=== PATIENT | male | born 1925 | race Caucasian/White ===

== ENCOUNTER → 2016-04-06 | Outpatient (CLI) | payer OTHER, MEDICARE ==
--- NOTE | 2016-04-06 13:55 | DX ---
Bilateral Hands 3 Views History: M79.643, possible chondrocalcinosis. Comparison: Left hand and wrist September 21, 2012. Findings: Right: Chondrocalcinosis is noted, including in the metacarpophalangeal joints and in the region of t he TFCC. Mild joint space narrowing and osteophyte formation are present in the proximal distal inter phalangeal joints of the second and third fingers and in the first and second metacarpophalangeal starr nts. There is an erosion at the ulnar aspect of the base of the second metacarpal. Small lunate and p isiform erosions are suspected. No fracture is identified. Alignment is normal. Left: Chondrocalcinosis is slightly increased, including in the metacarpophalangeal joints and in the TFCC. Erosions are present in the head of the proximal phalanx of the thumb as well as in the lunate , triquetrum, and pisiform. There are equivocal erosions in the heads of the middle and distal phalan ges of the second finger. 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 Mild osteoarthritis is present in the proximal and distal interphalangeal joints of the second and third fingers and in the proximal interphalangeal joints of the fourth and fifth fingers, with sligh t increase in degenerative change since 2012. No fracture is identified. Alignment is normal. Impression: 1. Diffuse bilateral chondrocalcinosis. 2. Bilateral erosions in the carpals with a left first proximal phalanx erosion. 3. Additional findings as above.
== END ==
LOC: BMCIMAGING 11:03
PROVIDERS: ATTEND Internal Medicine Rheumatology
DX: M11.241 Other chondrocalcinosis, right hand (principal); M11.242 Other chondrocalcinosis, left hand; G60.3 Idiopathic progressive neuropathy; M19.90 Unspecified osteoarthritis, unspecified site
CPT/HCPCS: 86618-90

== ENCOUNTER → 2016-05-04 | Outpatient (CLI) | payer OTHER, MEDICARE | LOC: BMCIMAGING 13:48 | PROVIDERS: ATTEND Internal Medicine Rheumatology | DX: M11.241 Other chondrocalcinosis, right hand (principal); M11.242 Other chondrocalcinosis, left hand ==

== ENCOUNTER → 2016-05-29 | Outpatient (CLI) | payer OTHER, MEDICARE | LOC: FIMAGING 17:26 | PROVIDERS: ATTEND Internal Medicine | DX: R05 Cough (principal) ==

== ENCOUNTER 2016-07-21 23:09 | Inpatient (IN) | payer OTHER, MEDICARE ==
[2016-07-21] MEDS ORDERED: ONDANSETRON 4 MG/2 ML VIAL ONE (23:27)
[2016-07-21] MEDS ORDERED: ONDANSETRON 4 MG/2 ML VIAL IVP ONE (23:30)
--- NOTE | 2016-07-21 23:30 | EDPHY ---
H & P Source: Patient Exam Limitations: No limitations - Medical/Surgical History Hx Asthma: No Hx Chronic Respiratory Disease: No Hx Diabetes: No Hx Cardiac Disease: Yes Hx Renal Disease: No Hx Cirrhosis: No Hx Alcoholism: No Hx HIV/AIDS: No Hx Splenectomy or Spleen Trauma: No Other PMH: [place], AFib, Peripheral artery disease, thyroid. - Social History Smoking Status: Former smoker <Ezekiel Ruelas - Last Filed: 07/22/16 00:16> <Christina Carmen - Last Filed: 07/22/16 02:03> HPI/ROS: CHIEF COMPLAINT: Nausea, vomiting diarrhea HISTORY OF PRESENT ILLNESS: Patient complains of nausea that started around 9: 00 p.m. this evening. This was quickly followed by vomiting and diarrhea. The vomiting and diarrhea described as profuse and watery. Multiple bouts of this over the past 2 hours. The patient's son-in-law is at bedside. He reports that patient had 4 teeth pulled this afternoon. He arrived home for the Dentist 530, and they all had dinner together at 6:30 a.m. at the independent living facility. He was feeling well on the left around 8:30 p.m.. They were called 2 hours later with the above complaints. Patient reports some nausea at this time. He reports some abdominal cramping but no actual pain. No fever. No flank pain. No urinary complaints. He was started on amoxicillin today but no antibiotics in the past 30 days otherwise. No history of C difficile colitis. No known case of C diff at his residence at this time. No other associated complaints or modifying factors. Arrives by EMS with 500 mL of IV fluid infusing. REVIEW OF SYSTEMS: Ten systems reviewed and are negative unless otherwise noted in the HPI PERTINENT MEDICAL HISTORY: Reviewed EXAMINATION General Appearance: Alert, no distress Head: normocephalic, atraumatic Eyes: Pupils equal and round, no conjunctival pallor or injection. EOMs intact. No nystagmus. ENT, Mouth: Mucous membranes dry. Neck: Normal inspection, supple, non-tender Respiratory: Lungs are clear to auscultation. No wheezing, rhonchi or crackles. Cardiovascular: Bradycardic rate with regular rhythm. Gastrointestinal: Abdomen is soft. Mild tenderness in the epigastrium. No tympany. No guarding. No distention. Neurological: GCS 15. A&O, nonfocal, strength symmetric. Conversing appropriately. Skin: Warm and dry, no rash Extremities: Nontender, no pedal edema Psychiatric: Mood and affect normal DIFFERENTIAL DIAGNOSES: Including but not limited to acute nausea vomiting, dehydration, electrolyte disturbance, C difficile colitis, MDM: 11:30 p.m. Nausea, vomiting and diarrhea. The patient was nauseated and began to vomit toward the end of my examination. We are administering Zofran. Vital signs remained normotensive with mild bradycardia in the 50s. He is on a beta tulio. We will obtain EKG, chest x-ray and continue Monitoring closely, obtain laboratory studies and GI pathogen panel. 11:45 p.m. After my initial examination the patient's status has changed. He is now having difficulty finding words, he is feeling more nauseated and feeling scared. He was examined personally by Dr. Carmen. She has ordered a CT scan of the head. I have added blood cultures, lactic acid, troponin and chest x- ray. We are also obtaining a stat blood glucose by POC I-Stat. 12:15 a.m. Stroke alert was initiated after the blood glucose returned within normal limits. CT scan has returned negative for any acute findings. His mentation has improved. His vital signs remained stable with mild bradycardia. Will continue IV fluid resuscitation. The majority of his laboratory studies are pending. Dr. Carmen has been in contact with [facility]. At this time she will assume care the patient. Please see her note for final disposition per SUPERVISION: Patient was evaluated in conjunction with the supervising physician. Please see their note for details. (Ezekiel Ruelas) Constitutional: Initial Vital Signs Heart Rate 58 L 07/21/16 23:10 Respiratory Rate 16 07/21/16 23:10 Blood Pressure 165/75 H 07/21/16 23:10 O2 Sat (%) 95 07/21/16 23:10 O2 Delivery Mode Nasal Cannula O2 (L/minute) 2 Allergies/Adverse Reactions: codeine [Codeine] Allergy (Mild, Verified 07/21/16 23:24) Rash GLUTEN/CELIAC DISEASE Allergy (Mild, Uncoded 07/21/16 23:24) Other-Enter Comments Home Medications: Medication Instructions Recorded Aspirin [Aspirin 81mg] 81 mg PO DAILY 01/24/11 Finasteride [Proscar] 5 mg PO DAILY 01/24/11 Sertraline HCl [Zoloft] 25 mg PO DAILY 01/24/11 Simvastatin 20 mg PO 01/24/11 Triamterene/Hctz 37.5/25 [Dyazide] 37.5 each PO 01/24/11 Metoprolol Tartrate 10/25/15 Warfarin Sodium 10/25/15 Calcium [HI-KRYSTAL] 500 mg PO 07/21/16 Lactobacillus Combination No.4 1 each PO 07/21/16 [Probiotic] Medical Decision Making <Ezekile Ruelas - Last Filed: 07/22/16 00:16> - Diagnostics Imaging: Discussed imaging studies w/ call or contact centre team leader Radiologist <Christina Carmen - Last Filed: 07/22/16 02:03> - Diagnostics EKG Interpretation: EKG: Complete interpretation has been separately recorded in the [facility] archive. Summary impression: Normal sinus rhythm with PVC (Christina Carmen) Imaging Results: Imaging Impressions Head CT 07/21/16 23:44 impression: Negative. No acute intracranial hemorrhage or evidence of cortical ischemia. Findings discussed with Emergency Department physician, Christina Carmen MD at 07/22/2016 00:01. Chest x-ray one view shows no acute abnormalities, interpreted by me, radiology interpretation is pending. (Christina Carmen) Other Provider: ED PA DICTATION I evaluated and participated in the management of the patient. I also evaluated the patient independently. My co-signature indicates that I have reviewed this chart and I agree with the findings and plan of care as documented. My personal H&P findings include: This is an 89-year-old man with atrial fibrillation, off of warfarin for the last 3 days due to dental procedure , presenting to the ER now with nausea, vomiting, diarrhea for the last 1 day. At approximately midnight I was called to see the patient because he was complaining that he was feeling worse. He had a difficult time articulating exactly how he felt. He was misnaming words, and speaking somewhat nonsensically. He appeared to have aphasia. I completed a stroke assessment and his only finding was deficits in orientation, he could not tell me the name of the hospital, or the date today. We checked his electrolytes, glucose was normal, stroke activation was called. The patient had a CT scan without contrast performed of his head, this was interpreted by Dr. Helgans as negative with no acute findings. I consulted with the on-call neurologist from [facility], Dr. Parham. We discussed the case and Dr. Parham examined the patient. By this time, his symptoms had mostly resolved. His stroke scale was 0. We at this time attribute his aphasia to other process which is likely non neurologic. He continued to feel better in the ER with IV fluids. I have discussed the case with the hospitalist Dr. Flowers who will admit the patient. (Christina Carmen) - Data Points Laboratory Results: Laboratory Results 07/22/16 00:30 07/22/16 00:30 07/22/16 07/22/16 07/22/16 00:30 00:30 00:30 WBC 11.54 10^3/uL H 10^3/uL (3.80-9.50) RBC 5.09 10^6/uL 10^6/uL (4.40-6.38) Hgb 16.1 g/dL g/dL (13.7-17.5) POC Hgb Hct 46.7 % % (40.0-51.0) POC Hct MCV 91.7 fL fL (81.5-99.8) MCH 31.6 pg pg (27.9-34.1) MCHC 34.5 g/dL g/dL (32.4-36.7) RDW 14.0 % % (11.5-15.2) Plt Count 157 10^3/uL 10^3/uL (150-400) MPV 10.5 fL fL (8.7-11.7) Neut % (Auto) 88.7 % H % (39.3-74.2) Lymph % (Auto) 3.2 % L % (15.0-45.0) Faulkner % (Auto) 6.1 % % (4.5-13.0) Eos % (Auto) 0.3 % L % (0.6-7.6) Baso % (Auto) 0.3 % % (0.3-1.7) Nucleat RBC Rel Count 0.0 % % (0.0-0.2) Absolute Neuts (auto) 10.23 10^3/uL H 10^3/uL (1.70-6.50) Absolute Lymphs (auto) 0.37 10^3/uL L 10^3/uL (1.00-3.00) Absolute Monos (auto) 0.70 10^3/uL 10^3/uL (0.30-0.80) Absolute Eos (auto) 0.04 10^3/uL 10^3/uL (0.03-0.40) Absolute Basos (auto) 0.04 10^3/uL 10^3/uL (0.02-0.10) Absolute Nucleated RBC 0.00 10^3/uL 10^3/uL (0-0.01) Immature Gran % 1.4 % H % (0.0-1.1) Immature Gran # 0.16 10^3/uL H 10^3/uL (0.00-0.10) PT 15.4 SEC H SEC (12.0-15.0) INR 1.22 H (0.83-1.16) APTT 28.0 SEC SEC (23.0-38.0) POC Sodium Sodium 137 mEq/L mEq/L (134-144) POC Potassium Potassium 4.0 mEq/L mEq/L (3.5-5.2) POC Chloride Chloride 105 mEq/L mEq/L (97-110) Carbon Dioxide 25 mEq/l mEq/l (22-31) Anion Gap 7 mEq/L L mEq/L (8-16) POC BUN BUN 22 mg/dL mg/dL (7-23) Creatinine 0.9 mg/dL mg/dL (0.7-1.3) POC Creatinine Estimated GFR > 60 Glucose 112 mg/dL H mg/dL (70-100) POC Glucose Calcium 8.0 mg/dL L mg/dL (8.5-10.4) Total Bilirubin 1.2 mg/dL mg/dL (0.1-1.4) Conjugated Bilirubin 0.4 mg/dL mg/dL (0.0-0.5) Unconjugated Bilirubin 0.8 mg/dL mg/dL (0.0-1.1) AST 42 IU/L IU/L (17-59) ALT 41 IU/L IU/L (21-72) Alkaline Phosphatase 59 IU/L IU/L (38-126) Troponin I < 0.012 ng/mL ng/mL (0-0.034) NT-Pro-B Natriuret Pep 381 pg/mL pg/mL (0-450) Total Protein 6.4 g/dL g/dL (6.3-8.2) Albumin 3.5 g/dL g/dL (3.5-5.0) Lipase 111.0 IU/L IU/L (23-300) 07/21/16 23:42 WBC RBC Hgb POC Hgb 17.7 gm/dL H gm/dL (14.5-17.3) Hct POC Hct 52 % H % (42.8-50.6) MCV MCH MCHC RDW Plt Count MPV Neut % (Auto) Lymph % (Auto) Faulkner % (Auto) Eos % (Auto) Baso % (Auto) Nucleat RBC Rel Count Absolute Neuts (auto) Absolute Lymphs (auto) Absolute Monos (auto) Absolute Eos (auto) Absolute Basos (auto) Absolute Nucleated RBC Immature Gran % Immature Gran # PT INR APTT POC Sodium 139 mEq/L mEq/L (134-144) Sodium POC Potassium 3.3 mEq/L mEq/L (3.3-5.0) Potassium POC Chloride 100 mEq/L mEq/L (96-108) Chloride Carbon Dioxide Anion Gap POC BUN 21 mg/dL mg/dL (7-23) BUN Creatinine POC Creatinine 1.0 mg/dL mg/dL (0.8-1.5) Estimated GFR Glucose POC Glucose 128 mg/dL H mg/dL (70-100) Calcium Total Bilirubin Conjugated Bilirubin Unconjugated Bilirubin AST ALT Alkaline Phosphatase Troponin I NT-Pro-B Natriuret Pep Total Protein Albumin Lipase Medications Given: Discontinued Medications Ondansetron HCl (Zofran) 4 mg IVP EDNOW ONE Stop: 07/21/16 23:31 Last Admin: 07/21/16 23:46 Dose: 4 mg Point of Care Test Results: 07/21/16 23:42 POC Sodium 139 POC Potassium 3.3 POC Chloride 100 POC BUN 21 POC Creatinine 1.0 POC Glucose 128 H Departure <Ezekiel Ruelas - Last Filed: 07/22/16 00:16> <Christina Carmen - Last Filed: 07/22/16 02:03> - Departure Disposition: [facility] Acute Clinical Impression: Dehydration, Symptomatic bradycardia Nausea & vomiting Qualifiers: Vomiting type: unspecified Vomiting Intractability: non-intractable Qualified Code(s): R11.2 - Nausea with vomiting, unspecified Condition: Fair
--- NOTE | 2016-07-22 00:01 | CPEKG ---
Heart Rate: 56 RR Interval: 1071 P-R Interval: 172 QRSD Interval: 106 QT Interval: 464 QTC Interval: 448 P Many: 58 QRS Many: 80 T Wave Many: 58 EKG Severity - OTHERWISE NORMAL ECG - EKG Impression: SINUS RHYTHM EKG Impression: VENTRICULAR PREMATURE COMPLEX Electronically Signed By: Christina Carmen 22-Jul-2016 06:39:30
--- NOTE | 2016-07-22 00:23 | PDCONSULT ---
Lump Receiver Note: [facility] Note Demographics Consult Type Acute Stroke First Name Milan Last Name Roosevelt Date of 1925 Age: 89 Gender Male Referring Provider Dr Carmen Time of initial page (): 07/21/2016 23:53 Time of return call (): 07/21/2016 23:55 Time Ready to Initiate Telemed Consult ( Time): 07/21/2016 23:56 HPI Chief Complaint: aphasia Additional History (Free Text): 89 year old man with history of atrial fibrillation. He presented to the emergency department with complaints of vomiting and diarrhea. Developed trouble talking in the emergency department symptoms concerning for a fascia urgent CT scan was done and stroke alert was paged. Time of evaluation he requires some prompting to fully grab his attention but he is able to interact with the camera his son is at the bedside [facility]-- Past Medical History: Atrial Fibrillation, Hypertension, PVD, neuropathy Medications: off coumadin x 3 dys for anticipated dental procedure Exam Vitals: vital signs reviewed SBP: 147 DBP: 74 Mental Status: awake, follows commands, fair attention, seems in mild to moderate distress, distractable. Language: mild dysarthria (sounds close to baselline per family) names 5 of 6 objects, reads well and describes picture. Cranial Nerves no facial droop Motor: normal strength Sensory: normal sensation Cerebellar: normal cerebellar NIHSS Time (): 07/22/2016 00:02 LOC 1a: 0 = Alert; keenly responsive LOC 1b: 1 = Answers one question correctly LOC Commands: 0 = Performs both tasks correctly Best Gaze: 0 = Normal Visual: 0 = No visual loss Facial Palsy 0 = Normal symmetrical movements Motor Arm L: 0 = No drift; limb holds 90 (or 45) degrees for full 10 seconds Motor Arm R: 0 = No drift; limb holds 90 (or 45) degrees for full 10 seconds Motor Leg L: 0 = No drift; leg holds 30-degree position for full 5 seconds Motor Leg R: 0 = No drift; leg holds 30-degree position for full 5 seconds Limb Ataxia 0 = Absent Sensory: 0 = Normal; no sensory loss Best Language: 0 = No aphasia; normal Dysarthria: 1 = Indm-yp-[id number] dysarthria; patient slurs at least some words Extinction + Inattention: 0 = No abnormality NIHSS: [address]: just perfromed result pending. Assessment: Altered Mental Status, Altered mentatino wtih trouble talking vs possible aphasia. At tiem fo exam he is without lateralized deficits and talking is very close to baseline. Symptoms could be explained by systemic illness and mild encephalopathy or perhaps resolving aphasia symptoms. Plan/ please take as written orders Lytic/Intervention: NOT IV or IA candidate tPA Exclusion (< 3hr window) Mild or improving symptoms Target Blood Pressure: SBP < 180 and DBP < 100 Labs CBC, Comprehensive metabolic panel, ESR, UA Other telemetry monitoring, I have discussed my recommendations with the referring provider Additional Recommendations: Continue work up for causes of his presenting complaint, infection etc. If symptoms concerning for possible mild stroke persist or his syndrome worsens will re-eval. No tPa at this time due to mild syndrome, perhaps not TIA/stroke. Disposition observation
[2016-07-22 00:48] LABS: % IMMATURE GRANULYOCYTES 1.4 % (0.0-1.1); ABSOLUTE IMMATURE GRANULOCYTES 0.16 10^3/uL (0.00-0.10); ADD DIFF? NO; ADD MORPH? NO; ADD SCAN? NO; ATYPICAL LYMPHOCYTE FLAG 0 (0-99); FRAGMENT RBC FLAG 0 (0-99); HEMATOCRIT 46.7 % (40.0-51.0); HEMOGLOBIN 16.1 g/dL (13.7-17.5); LEFT SHIFT FLG 40 (0-99); LIPEMIA HEMOLYSIS FLAG 90 (0-99); MEAN CELL HEMOGLOBIN 31.6 pg (27.9-34.1); MEAN CELL HEMOGLOBIN CONCENTR. 34.5 g/dL (32.4-36.7); MEAN CELL VOLUME 91.7 fL (81.5-99.8); MEAN PLATELET VOLUME 10.5 fL (8.7-11.7); PLATELET CLUMPS FLAG 0 (0-99); PLATELET COUNT 157 10^3/uL (150-400); RED BLOOD CELL COUNT 5.09 10^6/uL (4.40-6.38)
[2016-07-22 00:57] LABS: ALANINE AMINOTRANSFERASE 41 IU/L (21-72); ALBUMIN 3.5 g/dL (3.5-5.0); ALKALINE PHOSPHATASE 59 IU/L (38-126); ANION GAP 7 mEq/L (8-16); ASPARTATE AMINOTRANSFERASE 42 IU/L (17-59); BILIRUBIN,TOTAL 1.2 mg/dL (0.1-1.4); BILIRUBIN-CONJUGATED 0.4 mg/dL (0.0-0.5); BILIRUBIN-UNCONJUGATED 0.8 mg/dL (0.0-1.1); CARBON DIOXIDE 25 mEq/l (22-31); CHLORIDE 105 mEq/L (97-110); CREATININE 0.9 mg/dL (0.7-1.3); GLOMERULAR FILTRATION RATE > 60; GLUCOSE 112 mg/dL (70-100); SODIUM 137 mEq/L (134-144); TOTAL PROTEIN 6.4 g/dL (6.3-8.2)
[2016-07-22 01:08] LABS: TROPONIN I < 0.012 ng/mL (0-0.034)
[2016-07-22 01:11] LABS: INR 1.22 (0.83-1.16); PROTIME(PATIENT) 15.4 SEC (12.0-15.0)
[2016-07-22] MEDS ORDERED: ONDANSETRON DISINTEGRATING 4 MG TAB PO PRN (02:26)
[2016-07-22] MEDS ORDERED: ONDANSETRON 4 MG/2 ML VIAL IVP PRN (02:26)
[2016-07-22] MEDS ORDERED: ACETAMINOPHEN 325 MG TAB PO PRN (02:26)
[2016-07-22] MEDS: NS 1,000 ML IV SCH ×2 (02:45→16:13)
[2016-07-22 05:50] LABS: ALANINE AMINOTRANSFERASE 37 IU/L (21-72); ALKALINE PHOSPHATASE 50 IU/L (38-126); ANION GAP 7 mEq/L (8-16); ASPARTATE AMINOTRANSFERASE 25 IU/L (17-59); BILIRUBIN,TOTAL 1.1 mg/dL (0.1-1.4); CALCIUM 8.2 mg/dL (8.5-10.4); CARBON DIOXIDE 22 mEq/l (22-31); CHLORIDE 107 mEq/L (97-110); CREATININE 0.9 mg/dL (0.7-1.3); GLOMERULAR FILTRATION RATE > 60; GLUCOSE 139 mg/dL (70-100); POTASSIUM 3.7 mEq/L (3.5-5.2); SODIUM 136 mEq/L (134-144); TOTAL PROTEIN 5.4 g/dL (6.3-8.2)
[2016-07-22 06:03] LABS: INR 1.18 (0.83-1.16)
--- NOTE | 2016-07-22 08:22 | GHP ---
[f rep st] HISTORY AND PHYSICAL DATE OF ADMISSION: 07/22/2016 CHIEF COMPLAINT: Nausea, vomiting, diarrhea. HISTORY OF PRESENT ILLNESS: This is an 89-year-old male with a history of atrial fibrillation, who underwent a dental procedure with extractions of 4 teeth on the morning of admission. He had been o ff his Coumadin for 3 days. He states that several hours later, he developed nausea, vomiting, and diarrhea that became watery. Denied any abdominal pain. No fevers or chills. This persisted and p atient came to the emergency department. In the emergency department, he had a very short episode o f aphasia. Afterwards, patient describes that he felt a little bit confused and frustrated that he was unable to get words out. A stroke alert was called and by the time the tele neurologist saw the patient, his symptoms had essentially resolved. He denies any focal weakness. Several hours after this episode and during this interview, the patient is feeling a little bit better. He stopped vom iting and has not had a bowel movement. He lives at the [facility]. No known history of Clostridium difficile or sick contacts. He received a local anesthetic. REVIEW OF SYSTEMS: A 10-point review of systems obtained, and other than stated was negative. PAST MEDICAL HISTORY: 1. Atrial fibrillation. He states that he just had 1 episode of atrial fibrillation that is known, and I believe was diagnosed on a 24 ambulatory monitor EKG in 2010. 2. Coronary artery disease on a heart catheterization done in 2012, which showed up to 70% stenosis of his circumflex, as well as some stenosis of his LAD, but was managed medically. 3. Peripheral vascular disease. 4. BPH. 5. Hypertension. MEDICATIONS: Reviewed. SOCIAL HISTORY: Former smoker. Lives with his . Lives at [facility]. FAMILY HISTORY: Both parents are . PHYSICAL EXAMINATION: Afebrile, blood pressure is 154/67, heart rate 65, oxygen saturation 100% on 2 L. GENERAL: The patient is well developed, no apparent distress. HEENT: Nonicteric sclerae. E xtraocular muscles intact. Moist mucous membranes. NECK: Supple. No thyromegaly. LUNGS: Good e ffort. Clear to auscultation bilaterally. CARDIOVASCULAR: Regular rate and rhythm. No murmurs, r ubs, or gallops. ABDOMEN: Positive bowel sounds. Soft. Nontender. Nondistended. No hepatosplen omegaly. EXTREMITIES: No clubbing, cyanosis, or edema. SKIN: Without rash, dry, intact. NEUROLO GIC: Alert and oriented x3, 5/5 strength in all 4 extremities. No facial droop. PSYCH: Normal mo od and affect. LABORATORY DATA: White blood cell count is slightly elevated at 11, hemoglobin 16. Creatinine is 0 .9. Troponin was negative. CT scan of the head is negative. ASSESSMENT: This is an 89-year-old male, presenting with acute nausea, vomiting, and diarrhea after teeth extractions. PLAN: 1. Nausea, vomiting, and diarrhea. I am not sure what the cause is. I am wondering if this may be some type of allergic reaction to perhaps the lidocaine. It seems to be too quick of an onset to b e Clostridium difficile from the antibiotics that he was given. It could be a coincidental gastroen teritis. GI pathogen is pending currently. We will continue IV fluids and monitor how he does. 2. Transient episode of aphasia. It is concerning that he does have a history of atrial fibrillati on and has been off his anticoagulation for the last several days; however, he is in sinus rhythm cu rrently, and symptoms were quite transient. Neurology thought that it was non-neurological in origi n. I am a little bit hesitant to aggressively anticoagulate since he just had his teeth extractions less than 24 hours ago. We will restart his Coumadin. I guess a consideration for Lovenox later i n the day could be made. 3. History of coronary artery disease. We will check another troponin in case this is an anginal e quivalent, although diarrhea does not necessarily fit in that. 4. Code status. Patient is a DNR. /[id number]/MODL
[2016-07-22] MEDS ORDERED: ENOXAPARIN 40 MG/0.4 ML SYR SC SCH (09:00)
[2016-07-22] MEDS: methylPREDNISolone 4 MG TAB PO SCH (13:24)
--- NOTE | 2016-07-22 17:13 | HOSPPROG ---
Hospitalist Progress Note Assessment/Plan: * Severe diarrhea - resolved -GI PCR panel negative -afraid to eat - encouraged him to advance diet * TIA - suspect due to holding coumadin for dental work -start full dose Lovenox tonight as bridge * Recent dental work -per dentist okay to DC amoxicillin -patient concerned abx caused diarrhea * Afib -anticoagulation as above * CAD - 70% circ lesion - unstented Subjective: Afraid to eat, hasn't taken even water, no more diarrhea Objective: Vital Signs Temp Pulse Resp BP Pulse Ox 36.8 C 70 18 104/54 L 94 07/22/16 15:15 07/22/16 15:15 07/22/16 15:15 07/22/16 15:15 07/22/16 15:15 PT 15.0 SEC (12.0-15.0) 07/22/16 05:00 INR 1.18 (0.83-1.16) H 07/22/16 05:00 CXR viewed, my personal interpretation is - negative head CT negative - Physical Exam Constitutional: no apparent distress, appears nourished, not in pain Cardiovascular: regular rate and rhythym, no murmur, rub, or gallop Respiratory: no respiratory distress, no rales or rhonchi, clear to auscultation Gastrointestinal: normoactive bowel sounds, soft, non-tender abdomen, no palpable masses Skin: no rashes or abrasions, no fluctuance, no induration Neurologic: AAOx3, sensation intact bilaterally Psychiatric: interacting appropriately, not anxious, not encephalopathic, thought process linear ICD10 Worksheet Patient Problems: Problems Problem Status Onset Dehydration Acute Nausea & vomiting Acute Symptomatic bradycardia Acute Atrial fibrillation Acute
[2016-07-22] MEDS: METOPROLOL TARTRATE 25 MG TAB PO SCH (20:51)
[2016-07-22] MEDS: SERTRALINE HCL 25 MG TAB PO SCH (20:52)
[2016-07-22] MEDS: FINASTERIDE 5 MG TAB PO SCH (20:52)
[2016-07-22] MEDS: ATORVASTATIN CALCIUM 10 MG TAB PO SCH (20:52)
[2016-07-22] MEDS: ENOXAPARIN 40 MG/0.4 ML SYR SC SCH (20:54)
[2016-07-22] MEDS ORDERED: NON-FORMULARY NEW DRUG (Simvastatin [Simvastatin] 20 MG) PO SCH (21:00)
[2016-07-22] MEDS ORDERED: WARFARIN SODIUM 2.5 MG TAB PO SCH (21:00)
[2016-07-23 05:47] LABS: % IMMATURE GRANULYOCYTES 0.6 % (0.0-1.1); ABSOLUTE IMMATURE GRANULOCYTES 0.03 10^3/uL (0.00-0.10); ADD DIFF? NO; ADD MORPH? NO; ADD SCAN? NO; ATYPICAL LYMPHOCYTE FLAG 0 (0-99); FRAGMENT RBC FLAG 0 (0-99); HEMATOCRIT 40.9 % (40.0-51.0); HEMOGLOBIN 13.8 g/dL (13.7-17.5); LEFT SHIFT FLG 10 (0-99); LIPEMIA HEMOLYSIS FLAG 80 (0-99); MEAN CELL HEMOGLOBIN 31.3 pg (27.9-34.1); MEAN CELL HEMOGLOBIN CONCENTR. 33.7 g/dL (32.4-36.7); MEAN CELL VOLUME 92.7 fL (81.5-99.8); MEAN PLATELET VOLUME 10.3 fL (8.7-11.7); PLATELET CLUMPS FLAG 0 (0-99); PLATELET COUNT 126 10^3/uL (150-400); RED BLOOD CELL COUNT 4.41 10^6/uL (4.40-6.38); RED CELL DISTRIBUTION WIDTH 14.4 % (11.5-15.2)
[2016-07-23 06:04] LABS: ANION GAP 3 mEq/L (8-16); CALCIUM 7.6 mg/dL (8.5-10.4); CARBON DIOXIDE 24 mEq/l (22-31); CHLORIDE 107 mEq/L (97-110); GLOMERULAR FILTRATION RATE > 60; GLUCOSE 82 mg/dL (70-100); POTASSIUM 3.5 mEq/L (3.5-5.2); SODIUM 134 mEq/L (134-144)
[2016-07-23 06:50] LABS: INR 1.25 (0.83-1.16); PROTIME(PATIENT) 15.7 SEC (12.0-15.0)
[2016-07-23] MEDS: TRIAMTERENE/HCTZ 37.5/25 1 EACH TAB PO SCH (09:44)
[2016-07-23] MEDS: methylPREDNISolone 4 MG TAB PO SCH (09:44)
[2016-07-23] MEDS: ENOXAPARIN 80 MG/0.8 ML SYR SC SCH ×2 (09:45→20:29)
[2016-07-23] MEDS: METOPROLOL TARTRATE 25 MG TAB PO SCH ×2 (09:45→20:29)
[2016-07-23] MEDS: ENOXAPARIN 40 MG/0.4 ML SYR SC SCH (09:47)
[2016-07-23] MEDS: LOPERAMIDE HCL 2 MG CAP PO PRN ×3 (10:28→12:03)
[2016-07-23] MEDS ORDERED: DIPHENOXYLATE/ATROPINE LOMOTIL 1 TAB PO PRN (12:54)
[2016-07-23] MEDS: NS 1,000 ML IV SCH (13:39)
--- NOTE | 2016-07-23 15:33 | HOSPPROG ---
Hospitalist Progress Note Assessment/Plan: * Severe diarrhea - continues -GI PCR panel negative -Immodium prn * TIA - suspect due to holding coumadin for dental work -full dose Lovenox as bridge * Recent dental work -per dentist okay to DC amoxicillin -patient concerned abx caused diarrhea * Afib -anticoagulation as above * CAD - 70% circ lesion - unstented Subjective: Severe diarrhea - 5 large watery BM since this am Objective: Vital Signs Temp Pulse Resp BP Pulse Ox 36.5 C 60 21 H 119/57 L 95 07/23/16 11:35 07/23/16 11:35 07/23/16 11:35 07/23/16 11:35 07/23/16 11:35 Laboratory Results 07/23/16 05:30 07/23/16 05:30 PT 15.7 SEC (12.0-15.0) H 07/23/16 05:30 INR 1.25 (0.83-1.16) H 07/23/16 05:30 - Physical Exam Constitutional: no apparent distress, appears nourished, not in pain Cardiovascular: regular rate and rhythym, no murmur, rub, or gallop Respiratory: no respiratory distress, no rales or rhonchi, clear to auscultation Gastrointestinal: normoactive bowel sounds, soft, non-tender abdomen, no palpable masses Skin: no rashes or abrasions, no fluctuance, no induration Neurologic: AAOx3, sensation intact bilaterally Psychiatric: interacting appropriately, not anxious, not encephalopathic, thought process linear ICD10 Worksheet Patient Problems: Problems Problem Status Onset Dehydration Acute Nausea & vomiting Acute Symptomatic bradycardia Acute Atrial fibrillation Acute
[2016-07-23] MEDS: ATORVASTATIN CALCIUM 10 MG TAB PO SCH (20:27)
[2016-07-23] MEDS: FINASTERIDE 5 MG TAB PO SCH (20:28)
[2016-07-23] MEDS: SERTRALINE HCL 25 MG TAB PO SCH (20:29)
[2016-07-23] MEDS ORDERED: WARFARIN SODIUM 2.5 MG TAB PO SCH (21:00)
[2016-07-24 05:31] LABS: % IMMATURE GRANULYOCYTES 0.8 % (0.0-1.1); ABSOLUTE IMMATURE GRANULOCYTES 0.04 10^3/uL (0.00-0.10); ADD DIFF? NO; ADD MORPH? NO; ADD SCAN? NO; ATYPICAL LYMPHOCYTE FLAG 20 (0-99); FRAGMENT RBC FLAG 0 (0-99); HEMATOCRIT 39.7 % (40.0-51.0); HEMOGLOBIN 13.3 g/dL (13.7-17.5); LEFT SHIFT FLG 0 (0-99); LIPEMIA HEMOLYSIS FLAG 80 (0-99); MEAN CELL HEMOGLOBIN 31.4 pg (27.9-34.1); MEAN CELL HEMOGLOBIN CONCENTR. 33.5 g/dL (32.4-36.7); MEAN CELL VOLUME 93.6 fL (81.5-99.8); MEAN PLATELET VOLUME 10.5 fL (8.7-11.7); PLATELET CLUMPS FLAG 0 (0-99); PLATELET COUNT 123 10^3/uL (150-400); RED BLOOD CELL COUNT 4.24 10^6/uL (4.40-6.38); RED CELL DISTRIBUTION WIDTH 14.4 % (11.5-15.2)
[2016-07-24 05:44] LABS: INR 1.42 (0.83-1.16); PROTIME(PATIENT) 17.3 SEC (12.0-15.0)
[2016-07-24 05:57] LABS: ANION GAP 5 mEq/L (8-16); CALCIUM 7.8 mg/dL (8.5-10.4); CARBON DIOXIDE 26 mEq/l (22-31); CHLORIDE 108 mEq/L (97-110); CREATININE 0.9 mg/dL (0.7-1.3); GLOMERULAR FILTRATION RATE > 60; GLUCOSE 73 mg/dL (70-100); POTASSIUM 3.9 mEq/L (3.5-5.2); SODIUM 139 mEq/L (134-144)
[2016-07-24 08:25] VITALS: BP 154/71; RESP 18; TEMP 98.4; O2SAT 95
[2016-07-24] MEDS: NS 1,000 ML IV SCH (09:14)
[2016-07-24] MEDS: ENOXAPARIN 80 MG/0.8 ML SYR SC SCH (09:15)
[2016-07-24] MEDS: TRIAMTERENE/HCTZ 37.5/25 1 EACH TAB PO SCH (09:15)
[2016-07-24] MEDS: METOPROLOL TARTRATE 25 MG TAB PO SCH (09:16)
[2016-07-24] MEDS: methylPREDNISolone 4 MG TAB PO SCH (09:16)
[2016-07-24 09:18] VITALS: PULSE 59
--- NOTE | 2016-07-24 10:08 | PDIAF ---
- Diagnosis Diagnosis: diarrhea, possible TIA Code Status: Do Not Resuscitate - Medication Management Discharge Medications: Medications to Continue on Transfer Calcium Carbonate [Oyster Shell Calcium 500 mg (*)] 500 mg PO BID 07/22/16 [ Last Taken 07/21/16 08:00] Finasteride [Proscar 5 MG (*)] 5 mg PO HS 07/22/16 [Last Taken 07/20/16] Herbals/Supplements -Info Only 1 ea PO DAILY 07/22/16 [Last Taken Unknown] Metoprolol Tartrate [Lopressor 25 mg (*)] 25 mg PO BID 07/22/16 [Last Taken 11/29 08:00] Multivitamins [Multivitamin (*)] 1 each PO DAILY 07/22/16 [Last Taken 07/21/16] Sertraline HCl [Zoloft 25mg (*)] 25 mg PO HS 07/22/16 [Last Taken 07/20/16] Simvastatin 20 mg PO HS 07/22/16 [Last Taken 07/20/16] Triamterene/Hydrochlorothiazid [Triamterene-Hctz 75-50 mg Tab] 0.5 each PO DAILY 07/22/16 [Last Taken 07/21/16] Warfarin Sodium [Coumadin 2.5MG (*)] 1.25 mg PO MOWEFRSA@209907/22/16 [Last Taken Unknown] Warfarin Sodium [Coumadin 2.5MG (*)] 2.5 mg PO SUTUTH@209907/22/16 [Last Taken Unknown] methylPREDNISolone [Methylprednisolone] 2 mg PO DAILY 07/22/16 [Last Taken 07/21] Enoxaparin [Lovenox 80 MG (*)] 70 mg SC Q12 #5 syr 07/24/16 [Last Taken Unknown] Discharge Medications: Refer to the Discharge Home Medication list for PRN reason. - Orders Services needed: Registered Nurse, Physical Therapy, Occupational Therapy Diet Recommendation: no restrictions on diet - Labs/Radiology PT/INR Date: 07/27/16 Call or Fax Lab and Imaging Results to: Primary Care Physician - Follow Up Care Current Providers and Referrals: Patient,NotPresent [Unknown] - As per Instructions
--- NOTE | 2016-07-24 19:05 | GDS ---
[f rep st] DISCHARGE SUMMARY DISCHARGE DIAGNOSES: 1. Viral gastroenteritis. 2. Transient ischemic attack due to holding warfarin for dental work. 3. Recent tooth extractions. 4. Atrial fibrillation. 5. Coronary artery disease with known unstented 70% circumflex lesion. 6. Peripheral vascular disease with claudication problem. 7. Celiac disease. HISTORY: The patient is an 89-year-old male, who presented with severe diarrhea shortly after havin g some dental work. He was taking prophylactic amoxicillin, which he was worried was the cause, and he spoke to his dentist who said it is okay to discontinue it. Despite discontinuing amoxicillin, he had persistent diarrhea. GI PCR was negative. Eventually, it did resolve with some Imodium. Di arrhea was, however, quite severe for a period of time, requiring ongoing inpatient stay. He also had a transient episode suspicious for TIA. He had a transient expressive aphasia that reso lved. He is chronically on warfarin but that had been held for his dental work, and he presented wi th a subtherapeutic INR. After he was 24 hours post tooth extraction, we did start him on full-dose Lovenox as a bridge to warfarin being therapeutic. He will discharge home with full-dose Lovenox t o complete a full 5-day overlap and anticipate warfarin will be therapeutic at that time. DISCHARGE MEDICATIONS: Please see computer record for full detailed list. New medications: Lovenox 70 mg subcu q.12 hours, 5 more doses administered. ADDITIONAL DISCHARGE INSTRUCTIONS: Continue Lovenox until INR is greater than 2. Check INR on July 27. Patient was arranged for home health at the time of discharge. Greater than 30 minutes' time was spent arranging this discharge. Patient seen and examined by me priscila hoover the day of discharge. /[id number]/MODL
== END 2016-07-24 13:19 | disposition home health service (06) | DRG 392 ==
LOC: EDUNIT# → F3E 07-22 02:05 → OBSVTOIN 07-22 13:17
PROVIDERS: ADMIT Internal Medicine; ATTEND Internal Medicine
DX: A08.4 Viral intestinal infection, unspecified (principal); G45.9 Transient cerebral ischemic attack, unspecified; I48.91 Unspecified atrial fibrillation; I25.10 Atherosclerotic heart disease of native coronary artery without angina pectoris; I73.9 Peripheral vascular disease, unspecified; K90.0 Celiac disease; I10 Essential (primary) hypertension; Z66 Do not resuscitate
CPT/HCPCS: 82947-QW; 92523-GN; 96374; 97116-GP; 97161-GP; 97165-GO; 97530-GO; 97530-GP; 97535-GO; G8978-GP-CI; G8979-GP-CI; G8987-GO-CI; G8988-GO-CI; G8989-GO-CI; G9168-GN-CK; G9169-GN-CI; J1650; J2405